=== PATIENT | female | born 2000 | race Two or more races ===

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

== ENCOUNTER 2021-08-30 00:19 | Emergency (ER) | payer BC ==
--- NOTE | 2021-08-30 01:10 | NUR ---
PATIENT WAS CALLED TO BE TRIAGED BUT WAS NOT PRESENT IN THE WAITING ROOM OR OUTSIDE OF ER.
--- NOTE | 2021-08-30 01:22 | NUR ---
CALLED PATIENT CELLPHONE AND PATIENT ANSWERED AND STATED "I DID NOT WANT TO BEEN SEEN ANYMORE SO I LEFT."
== END 2021-08-30 01:22 | disposition left against medical advice (07) ==
LOC: ER 00:54
DX: Z53.21 Procedure and treatment not carried out due to patient leaving prior to being seen by health care provider (principal)